=== PATIENT | female | born 1945 | race Caucasian/White ===

== ENCOUNTER 2020-06-11 12:50 | Inpatient (IN) | payer OTHER ==
[~2020-06-11] VITALS: Ht 167.6 cm; Wt 73.0 kg
[2020-06-11 12:54] VITALS: BP 119/67
[2020-06-11] MEDS ORDERED: AMIODARONE HCL400 MG PO (13:28)
[2020-06-11] MEDS ORDERED: CELEXA 10 MG TA10 M1 PO (13:29)
[2020-06-11] MEDS ORDERED: LEVOFLOXACIN750 MG PO (13:29)
[2020-06-11] MEDS ORDERED: ASA81BEC PO (13:29)
[2020-06-11] MEDS ORDERED: LEVEMIR100 UNIT/1 SUBQ (13:29)
[2020-06-11] MEDS ORDERED: LISINOPRIL10 MG PO (13:30)
[2020-06-11 13:35] LABS: BASOPHILS 0.3 % (0.0-2.0); EOSINOPHILS 0.1 % (0.0-3.0); HEMOGLOBIN 12.7 gm/dL (12.0-15.0); LYMPHOCYTES 15.2 % (24.0-44.0); MCH 30.6 pg (26.0-34.0); MCHC 31.7 g/dL (28.0-37.0); MCV 96.2 fL (80.0-100.0); MONOCYTES 7.3 % (1.0-8.0); POLYS 77.1 % (36.0-66.0); RBC 4.16 mil/uL (4.20-5.00); RDW 14.9 % (10.5-14.5); WBC 15.6 thou/uL (4.0-11.0)
[2020-06-11 14:36] LABS: URINE BILIRUBIN NEGATIVE (Negative); URINE BLOOD 2+ (Negative); URINE CLARITY CLEAR; URINE COLOR YELLOW; URINE GLUCOSE-RANDOM* TRACE (Negative); URINE KETONES NEGATIVE (Negative); URINE NITRITE-REFLEX NEGATIVE (Negative); URINE PROTEIN (DIPSTICK) TRACE (Negative); URINE UROBILINOGEN 0.2 E.U./dl (0.2-1.0)
[2020-06-11 14:40] LABS: URINE LEUKOCYTES-REFLEX 1+ (Negative)
[2020-06-11 14:51] LABS: PLATELET COUNT 247 thou/uL (150-400)
[2020-06-11 14:55] LABS: SQUAMOUS 4-10 Moderate /LPF (0-3)
[2020-06-11 14:56] LABS: CASTS None Seen /LPF (None Seen); CRYSTALS None Seen /LPF (None Seen); URINE RBC 3-10 Few /HPF (0-2); URINE WBC-REFLEX 6-15 Few /HPF (0-5); YEAST-REFLEX Present (None Seen)
[2020-06-11 15:15] LABS: CALCIUM 9.7 mg/dL (8.5-10.1); CREATININE 1.1 mg/dL (0.6-1.0); POTASSIUM 4.3 mmol/L (3.5-5.1)
[2020-06-11 15:22] LABS: ALBUMIN 2.8 g/dL (3.4-5.0); TOTAL BILIRUBIN 0.4 mg/dL (0.2-1.0); TOTAL PROTEIN 6.7 g/dL (6.4-8.2)
--- NOTE | 2020-06-11 16:06 | NUR ---
PT'S SON LESLIE (DPOA) CALLED. UPDATE GIVEN. HE STATED THAT PATIENT IS A DNR AND DNI
[2020-06-11 22:07] VITALS: BP 100/52
[2020-06-11 22:41] VITALS: BP 100/52
[2020-06-11 22:52] VITALS: BP 107/56
[2020-06-11 23:40] VITALS: BP 94/37
[2020-06-12 02:52] LABS: HEMATOCRIT 38.7 % (37.0-47.0); HEMOGLOBIN 12.1 gm/dL (12.0-15.0); MCH 30.2 pg (26.0-34.0); MCHC 31.2 g/dL (28.0-37.0); RBC 3.99 mil/uL (4.20-5.00); RDW 14.6 % (10.5-14.5); WBC 13.5 thou/uL (4.0-11.0)
[2020-06-12 03:04] LABS: ALBUMIN 2.5 g/dL (3.4-5.0); CALCIUM 9.2 mg/dL (8.5-10.1); CREATININE 0.8 mg/dL (0.6-1.0); MAGNESIUM 2.3 mg/dL (1.8-2.4); PHOSPHORUS 2.6 mg/dL (2.5-4.9); POTASSIUM 3.9 mmol/L (3.5-5.1)
[2020-06-12 03:40] VITALS: BP 103/52
--- NOTE | 2020-06-12 04:00 | NUR ---
PT WITH NO EPISODES OF SEIZURES OR TREMORS. PT ALSO DENIES ANY PAIN THRO NOC. SWALLOWS WITH NO DIFFICULTIES, IVF INFUSING, ADEQUATE U/O VIA EVANS.SEIZURE PREC IN PLACE.
--- NOTE | 2020-06-12 04:23 | NUR ---
ADMISSION COMPLETED. PT IS FROM [facility]. ADMITTED DUE TO FAILED OUTPT TREATMENT FOR UTI WELL AMS. PT UNABLE TO ANSWER ANY QUESTIONS. ADMISSION DATA GATHERED FROM PAPER WORK FROM [facility] AND ER REPORT. PT IS INCONTINENT OF BOWEL AND BLADDER. SHE HAD A SMALL SMEAR OF BM. PT IS AFEBRILE. SATTING FINE ON ROOM AIR. PT HAS A GTUBE, WITH ABDOMINAL BINDER IN PLACE. WITH CONTRATURES TO MAKENNA LEGS AND HANDS-Q2HR TURNS PROVIDED. IVF RUNNING VIA LAC.DECUBITUS WOUND ON THE COCCYX-PICTURES TAKEN-JUNIOR ARCHITECT.FALL PREC IN PLACE. WILL CONTINUE WITH POC TILL EOS.
[2020-06-12 08:31] VITALS: BP 123/64
--- NOTE | 2020-06-12 10:15 | NUR ---
WOUND CONSULT; THE PATIENT IS UNABLE TO COMMUNICATE AND IS AWAKE. THE PATIENT CANNOT TURN HERSELF. THERE IS A STAGE 2 PRESSURE INJURY TO THE COCCYX/BUTTOCKS. THE WOUND BED IS CLEAN. NO ACUTE S/S OF INFECTION. RECOMMENDATIONS; 1-TURN Q2H/PRN MINIMUM 2-ZGUARD TID/PRN 3-LALP DISCUSSED WITH ADRIA
--- NOTE | 2020-06-12 11:11 | NUR ---
Assumed care of pt at 0700. Pt not verbalizing but nods to yes or no questions. Incontinent. IVF infusing. PEG tube in place. Receiving Worker seen patient. Wound care seen patient. Zguard applied. Denies pain. Q2h turn. Frequent rounding. Fall precautions in place. Will continue to monitor.
--- NOTE | 2020-06-12 14:34 | NUR ---
ASSESSMENT: CM REVIEWED CHART AND SPOKE WITH ATTENDING. PT WAS ADMITTED FOR ENCEPHALOPATHY AND IS FROM [facility]. PT NORMALLY USES A WHEELCHAIR. CM NOTIFIED LIASON FROM [facility] OF PTS ADMISSION AND FAXED UPDATED CLINICAL TO FACILITY. CM ALSO SPOKE WITH PTS SON LESLIE TO UPDATE AND PLANS ARE FOR PATIENT TO RETURN BACK TO [facility] ONCE MEDICALLY STABLE. PT WILL NEED A NEGATIVE COVID TEST ONCE CLOSER TO DISCHARGE BACK TO FACILITY. CM WILL CONTINUE TO FOLLOW TO ASSIST NEEDED.
[2020-06-12 17:21] VITALS: BP 114/52
[2020-06-12 19:30] VITALS: BP 135/57
--- NOTE | 2020-06-13 05:00 | NUR ---
PT IS RESPONSIVE AND AWAKE. APHASIC. Q2HR TURN.BM LAST NOC. PRAFO BOOTS IN PLACE WELL MARÍA. CONTINUES ON IVF AND IV ABTS. TUBE FEEDINGS RUNNING @ 30HR. NO RESIDUALS. WATER FLUSHES PROVIDED.PT IS AFEBRILE.
[2020-06-13 06:20] LABS: ALBUMIN 2.5 g/dL (3.4-5.0); CALCIUM 9.2 mg/dL (8.5-10.1); CREATININE 0.8 mg/dL (0.6-1.0); PHOSPHORUS 2.4 mg/dL (2.6-4.7); POTASSIUM 3.5 mmol/L (3.5-5.1)
[2020-06-13 08:08] VITALS: BP 141/74
--- NOTE | 2020-06-13 10:52 | NUR ---
PATIENT TESTED FOR COVID 19 RIGHT NARE. SENT TO LAB
--- NOTE | 2020-06-13 11:06 | NUR ---
on-going assessment: CM REVIEWED CHART AND SPOKE WITH ATTENDING WHO STATES PT IS NEARING DISCHARGE GOALS AND MAY BE ABLE TO GO BACK TO FACILITY TOMORROW. CM NOTIFIED KELVIN FLETCHER AT [facility] WHO REPORTS THEY CAN ACCEPT HER BUT WILL NEED THE NEGATIVE COVID TEST RESULTS BEFORE SHE RETURNS. CM NOTIFIED BEDSIDE RN AND COVID TEST WAS ORDERED. COVID RESULTS ALONG WITH DISCHARGE ORDERS/SUMMARY WILL NEED TO BE FAXED TO [facility] FAX:[phone]. CONTACT KELVIN FLETCHER AT [facility] ONCE PT IS MEDICALLY STABLE AT [phone] TO FACILITATE. CONTACT PATIENTS SON LESLIE AT TIME OF DISCHARGE AT [phone]. CHART COPY WILL NEED TO BE SENT WITH PATIENT. CONTACT [facility] TO ARRANGE TRANSPORTATION:[phone] [facility]:[phone] JUSTINE WARREN:[phone]
[2020-06-13 20:22] VITALS: BP 126/57
--- NOTE | 2020-06-14 05:51 | NUR ---
PATIENT ALERT TO NAME AND TRACKS WITH EYES, HOWEVER, IS NON VERBAL. NOT COOPERATIVE WITH CARE, DOES NOT ALLOW MOUTH CARE AND THIS NURSE HAD TO ASSIST LAB WITH AM BLOOD DRAW. INCONTINENT OF BM AND URINE. NO RESIDUAL ON TUBE FEEDING. THIS NURSE INCREASED TF FROM 30 TO 35ML/HR WITH A GOAL OF 60. POSSIBLE D/C TO [facility] IN [place] TODAY. BS MONITORED PER ORDER. IVF INFUSING W/O COMPICATION. WILL MONITOR.
[2020-06-14 06:13] LABS: ALBUMIN 2.4 g/dL (3.4-5.0); CALCIUM 8.6 mg/dL (8.5-10.1); CREATININE 0.7 mg/dL (0.6-1.0); PHOSPHORUS 2.6 mg/dL (2.6-4.7); POTASSIUM 3.8 mmol/L (3.5-5.1)
[2020-06-14 07:10] VITALS: BP 142/65
[2020-06-14 07:53] VITALS: BP 142/65
[2020-06-14] MEDS ORDERED: CLOPIDOGREL75 MG PER TUBE (08:41)
[2020-06-14] MEDS ORDERED: CEFUROXIME250 MG PO (08:41)
--- NOTE | 2020-06-14 11:01 | NUR ---
Assumed care of pt at 0700. Pt nonverbal. Does not appear in pain. IVF infusing. On tube feedings. Pt medically stable to discharge back to [facility]. Trying to reach liason. Called twice and left voicemail. Awaiting a call back. Fall precautions in place. Will continue to monitor.
== END 2020-06-14 15:25 | DRG 871 ==
LOC: ER 12:50 → EROBS 16:58 → 4S 16:58
PROVIDERS: Physician Assistant; ADMIT Hospitalist; ATTEND Hospitalist
DX: A41.9 Sepsis, unspecified organism (principal); G93.41 Metabolic encephalopathy; E43 Unspecified severe protein-calorie malnutrition; N39.0 Urinary tract infection, site not specified; I69.354 Hemiplegia and hemiparesis following cerebral infarction affecting left non-dominant side; E87.0 Hyperosmolality and hypernatremia; R65.20 Severe sepsis without septic shock; E11.9 Type 2 diabetes mellitus without complications; I11.0 Hypertensive heart disease with heart failure; I50.9 Heart failure, unspecified; I48.91 Unspecified atrial fibrillation; E86.0 Dehydration; F32.9 Major depressive disorder, single episode, unspecified; Z66 Do not resuscitate; F03.90 Unspecified dementia, unspecified severity, without behavioral disturbance, psychotic disturbance, mood disturbance, and anxiety; Z20.822 Contact with and (suspected) exposure to COVID-19; Z99.3 Dependence on wheelchair
CPT/HCPCS: 10102